=== PATIENT | male | born 1995 ===

== ENCOUNTER 2018-04-30 11:58 | Emergency (ER) | payer SELFPAY ==
--- NOTE | 2018-04-30 13:14 | RAD ---
HISTORY: SOB COMPARISONS: None VIEWS: 4: Frontal dual-energy and lateral views of the chest. FINDINGS: CARDIOMEDIASTINAL SILHOUETTE: The cardiomediastinal silhouette is normal. GABI: The gabi are normal. PLEURA: The costophrenic angles are sharp. No pleural abnormalities are noted. LUNG PARENCHYMA: The lungs are clear. ABDOMEN: The upper abdomen is clear. There is no subphrenic gas. BONES AND SOFT TISSUES: No bone or soft tissue abnormalities are noted. OTHER: None. IMPRESSION: NO ACTIVE CARDIOPULMONARY DISEASE.
--- NOTE | 2018-04-30 13:18 | UC ---
HPI Febrile Illness - HPI Summary HPI Summary: PATIENT HAS HAD INTERMITTENT LOW-GRADE FEVERS AROUND 100 FOR ABOUT ONE YEAR SINCE HAVING A RESPIRATORY ILLNESS. AT THAT TIME HE DID NOT SEEK ANY MEDICAL ATTENTION AND WAS NOT TREATED WITH ANYTHING. HE REPORTS HE GETS THESE FEVERS ABOUT EVERY 2 OR 3 MONTHS WITH SOME ASSOCIATED WHEEZING AND ACHINESS. LASTS FOR ABOUT A DAY THEN RESOLVES SPONTANEOUSLY. SINCE THEN HE HAS ALSO EXPERIENCED SHORTNESS OF BREATH WHEN HE LAYS FLAT. SHORTNESS OF BREATH IS NOT WORSE WITH EXERTION. LAST NIGHT HIS TEMPERATURE WENT UP TO 102.2. IT IS NOW NORMAL BUT PATIENT WAS CONCERNED ABOUT HOW HIGH HIS FEVER WAS LAST NIGHT SO CAME IN TODAY FOR EVALUATION. OF NOTE PATIENT WAS IN [facility] FOR 2 WEEKS ABOUT 6 WEEKS AGO. HE DID NOT TAKE ANY MALARIAL PROPHYLAXIS. NO AVILES OR RASH. - History of Current Complaint Chief Complaint: UCRespiratory Time Seen by Provider: 04/30/18 12:26 Hx Obtained From: Patient Timing: Intermittent Initial Severity: Mild Current Severity: Mild Pain Intensity: 2 Pain Scale Used: 0-10 Numeric Aggravating Factors: Nothing Alleviating Factors: Nothing Associated Signs and Symptoms: Arthralgia, Myalgia, SOB - Allergy/Home Medications Allergies/Adverse Reactions: Allergies Allergy/AdvReac Type Severity Reaction Status Date / Time No Known Allergies Allergy Verified 04/30/18 12:18 Home Medications: Home Medications NK [No Home Medications Reported] 04/30/18 [History Confirmed 04/30/18] PMH/Surg Hx/FS Hx/Imm Hx Previously Healthy: Yes - Surgical History Surgical History: Yes Surgery Procedure, Year, and Place: left knee arthriscopy. right 5th digit athroscopy - Family History Known Family History: Positive: Hypertension - Social History Alcohol Use: Rare Substance Use Type: None Smoking Status (MU): Never Smoked Tobacco Review of Systems Constitutional: Fever, Chills, Fatigue Skin: Negative Respiratory: Shortness Of Breath, Other - WHEEZE Cardiovascular: Negative Gastrointestinal: Negative Musculoskeletal: Arthralgia, Myalgia Neurological: Negative All Other Systems Reviewed And Are Negative: Yes Physical Exam Triage Information Reviewed: Yes Appearance: Well-Appearing, No Pain Distress, Well-Nourished Vital Signs: Initial Vital Signs Temp 98.6 F 04/30/18 12:10 Pulse 65 04/30/18 12:10 Resp 15 04/30/18 12:10 BP 126/76 04/30/18 12:10 Pulse Ox 98 07/25/18 12:10 Vital Signs Reviewed: Yes Eyes: Positive: Conjunctiva Clear ENT: Positive: Hearing grossly normal, Pharynx normal, TMs normal Neck: Positive: Supple, Nontender, No Lymphadenopathy Respiratory Exam: Normal Cardiovascular Exam: Normal Abdomen Description: Positive: Soft Musculoskeletal: Positive: No Edema Neurological: Positive: Alert Psychological: Positive: Age Appropriate Behavior Skin: Negative: rashes Diagnostics - Radiology CXR Xray Interpretation: No Acute Changes Radiology Interpretation Completed By: Radiologist Course/Dx - Course Course Of Treatment: PT WITH RECURRENT INTERMITTENT FEVER AND JOINT/MUSCLE ACHES. PT DECLINES BASIC LABS TODAY STATING HE HAS AN APPT FOR THIS WITH [facility] NEXT WEEK. WILL CHECK LYME AND MALARIA SCREEN. CXR UNREMARKABLE. CONSIDER A PERIODIC FEVER SYNDROME. F/U DR. WANG IF W/U AT [facility] UN[facility]VEALING. - Diagnoses Clinic Provider Diagnoses: PERIODIC FEVER SYNDROME Discharge - Sign-Out/Discharge Documenting (check all that apply): Patient Departure - Discharge Plan Condition: Stable Disposition: HOME Patient Education Materials: Fever in Adults (ED) Referrals: Abhijit QUINTANA,Ken Hernandez [Medical Doctor] - 2 Weeks Additional Instructions: UNCLEAR CAUSE OF YOUR RECURRENT FEVER. KEEP YOUR FOLLOW-UP AT [facility] NEXT WEEK AND GET YOUR LABS DRAWN PLANNED. WILL CHECK LYME SEROLOGY AND MALARIA SCREEN TODAY. CHEST XRAY TODAY UNREMARKABLE. IF YOUR SYMPTOMS ARE PERSISTENT WOULD FOLLOW-UP WITH DR. WANG (INFECTIOUS DISEASES). - Billing Disposition and Condition Condition: STABLE Disposition: Home
[2018-04-30 23:34] LABS: RBC Parasite Smear No Parasites Seen (No Parasite)
== END 2018-04-30 13:39 | disposition home or self-care (01) ==
LOC: UCEAST 11:58
DX: M04.1 Periodic fever syndromes (principal)
CPT/HCPCS: 36415; 71046; 86618; 87015; 87207; 99201; G0463